=== PATIENT | female | born 1980 | race Caucasian/White ===

== ENCOUNTER → 2024-06-21 07:42 | Outpatient (REF) | payer OTHER, SELFPAY | LOC: MRI 3T 07:42 | PROVIDERS: ATTENDING PHYSICIAN Physical Medicine & Rehabilitation; FAMILY PHYSICIAN Nurse Practitioner Adult Health | DX: M23.92 Unspecified internal derangement of left knee (principal) | CPT/HCPCS: 73721 ==

== ENCOUNTER → 2024-12-01 07:27 | Outpatient (REF) | payer OTHER, SELFPAY | LOC: WDC 07:27 | PROVIDERS: ATTENDING PHYSICIAN Nurse Practitioner Adult Health | DX: Z12.31 Encounter for screening mammogram for malignant neoplasm of breast (principal) | CPT/HCPCS: 77063; 77067 ==

== ENCOUNTER → 2025-02-02 10:11 | Outpatient (REF) | payer OTHER, SELFPAY | LOC: RAD 10:11 | PROVIDERS: ATTENDING PHYSICIAN Internal Medicine Geriatric Medicine; FAMILY PHYSICIAN Nurse Practitioner Adult Health | DX: M54.50 Low back pain, unspecified (principal); M06.4 Inflammatory polyarthropathy | CPT/HCPCS: 72072; 72110; 72200; 73565; 73630; 78306; A9503 ==